=== PATIENT | male | born 1960 | race Caucasian/White ===

== ENCOUNTER 2018-09-03 13:19 | Emergency (ER) | payer OTHER, MEDICAID ==
[~2018-09-03] VITALS: Ht 188 cm; Wt 85.3 kg
[2018-09-03 13:19] VITALS: BP_SYST 119
[2018-09-03] MEDS ORDERED: CARB200T2 PO (14:01)
[2018-09-03] MEDS ORDERED: DULCOLAX PR (14:01)
[2018-09-03] MEDS ORDERED: TAMS0.4C96 PO (14:01)
[2018-09-03] MEDS ORDERED: AMLO5TAB4 PO (14:01)
[2018-09-03] MEDS ORDERED: ACET325T53 PO (14:01)
[2018-09-03] MEDS ORDERED: BENA10TA9 PO (14:01)
[2018-09-03] MEDS ORDERED: ASCO500T20 PO (14:01)
[2018-09-03] MEDS ORDERED: CALC200T47 PO (14:01)
[2018-09-03] MEDS ORDERED: MOM PO (14:01)
[2018-09-03] MEDS ORDERED: PEDI0.2517 PO (14:01)
[2018-09-03] MEDS ORDERED: CALC-823 PO (14:01)
[2018-09-03] MEDS ORDERED: NA P133E41 RC (14:01)
[2018-09-03] MEDS ORDERED: POLY17PO4 PO (14:01)
[2018-09-03 15:44] VITALS: BP_SYST 118
== END 2018-09-03 15:44 | disposition home or self-care (01) ==
LOC: SED 13:19
DX: S91.115A Laceration without foreign body of left lesser toe(s) without damage to nail, initial encounter (principal); S90.32XA Contusion of left foot, initial encounter; Z79.899 Other long term (current) drug therapy; W19.XXXA Unspecified fall, initial encounter; Y93.89 Activity, other specified; Y92.89 Other specified places as the place of occurrence of the external cause; Y99.8 Other external cause status
CPT/HCPCS: 99283